=== PATIENT | female | born 1985 | race American Indian/Alaskan Native ===

== ENCOUNTER 2016-05-22 10:10 | Emergency (ER) | payer MEDICAID | END 2016-05-22 13:55 | disposition left against medical advice (07) | LOC: ED 10:10 | DX: L02.92 Furuncle, unspecified (principal); Z53.21 Procedure and treatment not carried out due to patient leaving prior to being seen by health care provider ==

== ENCOUNTER 2016-05-22 19:25 | Emergency (ER) | payer MEDICAID ==
--- NOTE | 2016-05-23 00:24 | Emergency Department Report ---
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 And tender to touch. She says she had swelling to her about 2 weeks denies any fever or chills. Minimal pain at present is 10 out of 10 with touching. She said similar incident in the past in a different area. Denies any nausea or vomiting. Denies any abdominal pain. Home Medications: Previous Rx's Medication Instructions Recorded Last Taken Type Acetaminophen/Codeine [Tylenol #3] 1 tab PO Q6H PRN #12 tab 06/15/13 Unknown Rx Ondansetron [Zofran] 4 mg PO Q6HR PRN #15 tablet 06/15/13 Unknown Rx metFORMIN [Glucophage] 500 mg PO BID #60 tablet 06/15/13 Unknown Rx Amoxicillin [Trimox CAP] 500 mg PO Q8H #30 capsule 11/01/15 Unknown Rx Cetirizine HCl [ZyrTEC] 10 mg PO DAILY #20 capsule 11/01/15 Unknown Rx predniSONE [Deltasone] 40 mg PO QDAY #10 tab 11/01/15 Unknown Rx Amoxicillin/K Clav Tab [Augmentin 1 tab PO Q12HR #14 tab 04/30/16 Unknown Rx 875 mg] Cyclobenzaprine [Flexeril 10 MG 10 mg PO QHS #24 tablet 04/30/16 Unknown Rx TAB] Cephalexin [Keflex] 500 mg PO Q8HR #21 cap 05/23/16 Unknown Rx Ibuprofen [Motrin 800 MG tab] 800 mg PO TID PRN #15 tablet 05/23/16 Unknown Rx Allergies/Adverse Reactions: Allergies Allergy/AdvReac Type Severity Reaction Status Date / Time No Known Allergies Allergy Verified 05/22/16 20:14 ED Review of Systems ROS: 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 Denies any drainage.) Neurological: denies: headache, numbness, paresthesias, confusion, abnormal gait , vertigo ED Past Medical Hx - Past Medical History Previous Medical History?: Yes Hx Hypertension: Yes Hx Diabetes: Yes Additional medical history: OBESITY - Surgical History Past Surgical History?: Yes Hx Cholecystectomy: Yes (2008) Additional Surgical History: , oral - Family History Family history: no significant - Social History Smoking Status: Current Every Day Smoker Substance Use Type: Marijuana - Medications Home Medications: Home Medications Medication Instructions Recorded Confirmed Last Taken Type Acetaminophen/Codeine [Tylenol #3] 1 tab PO Q6H PRN #12 tab 06/15/13 Unknown Rx Ondansetron [Zofran] 4 mg PO Q6HR PRN #15 tablet 06/15/13 Unknown Rx metFORMIN [Glucophage] 500 mg PO BID #60 tablet 06/15/13 Unknown Rx Amoxicillin [Trimox CAP] 500 mg PO Q8H #30 capsule 11/01/15 Unknown Rx Cetirizine HCl [ZyrTEC] 10 mg PO DAILY #20 capsule 11/01/15 Unknown Rx predniSONE [Deltasone] 40 mg PO QDAY #10 tab 11/01/15 Unknown Rx Amoxicillin/K Clav Tab [Augmentin 1 tab PO Q12HR #14 tab 04/30/16 Unknown Rx 875 mg] Cyclobenzaprine [Flexeril 10 MG 10 mg PO QHS #24 tablet 04/30/16 Unknown Rx TAB] Cephalexin [Keflex] 500 mg PO Q8HR #21 cap 05/23/16 Unknown Rx Ibuprofen [Motrin 800 MG tab] 800 mg PO TID PRN #15 tablet 05/23/16 Unknown Rx ED Abscess Boil Physical Exam - Exam General: Vital signs noted. No distress. Alert and acting appropriately. This is a 30-year-old female very obese in no acute distress. Exam: Yes Tenderness (dime size indurated and nonfluctuant area), Yes Surrounding Cellulites/Erythema, Yes Normal Neurologic Exam, Yes Normal Circulation, No Fluctuance, No Lymphangitis, No Crepitation, No Heart Murmur Exam: Head: Normocephalic/atraumatic. Lungs: Clear to auscultate bilaterally, no rhonchi wheezes or rales. Cardiovascular:S1, S2. Tachycardic at 105. Regular rhythm. Skin: Noted dime-sized area to left abdomen. Denies indurated with no fluctuance. Mild edema with tenderness to palpate. No drainage noted. Extremity: No clubbing, cyanosis or edema. +2 pulses. Abdomen: Soft, obese, nontender to palpate in all quadrants and normal bowel sounds in all quadrants. Psych: Normal mood and behavior I & D Note - I & D Note I & D Note: Patient with small indurated area that is nonfluctuant to left lower abdomen that is unable to be drained at present. ED Course Vital Signs 05/22/16 20:15 Temperature 98.2 F Pulse Rate 105 H Respiratory 18 Rate Blood Pressure 134/94 O2 Sat by Pulse 99 Oximetry - Reevaluation(s) Reevaluation #1: 05/23/16 01:12 Patient is stable throughout ED stay. Critical care attestation.: If time is entered above; I have spent that time in minutes in the direct care of this critically ill patient, excluding procedure time. ED Medical Decision Making - Medical Decision Making ED course: I Discussed with patient that she has a small area of cellulitis to abdomen area and she needs to keep affected area clean and dry. I discussed with her that I'll put her on antibiotic to treat cellulitis that she will also need to apply warm compresses 3-4 times a day to facilitate softening drainage. Patient was understanding of diagnosis and discharge instruction. discharge Home with prescription for Keflex and Motrin. ED Disposition Clinical Impression: Cellulitis of left abdominal wall Disposition: DISCHARGED TO HOME OR SELFCARE Is pt being admited?: No Does the pt Need Aspirin: No Condition: Stable Instructions: Cellulitis (ED) Additional Instructions: Please keep affected area clean and dry Apply warm compresses to affected 53-4 times a day to facilitate softening and drainage. Take antibiotic as prescribed. Follow-up with her primary care physician in 4 days. Prescriptions: Cephalexin [Keflex] 500 mg PO Q8HR #21 cap Ibuprofen [Motrin 800 MG tab] 800 mg PO TID PRN #15 tablet PRN Reason: Pain Referrals: CHACE SHABAZZ MD [Primary Care Provider] - 05/27/16 Forms: Accompanied Note, Work/School Release Form(ED)
[2016-05-23 01:44] VITALS: BP 132/88
== END 2016-05-23 02:09 | disposition home or self-care (01) ==
LOC: ED 19:25
DX: L03.311 Cellulitis of abdominal wall (principal); I10 Essential (primary) hypertension; E11.9 Type 2 diabetes mellitus without complications; E66.9 Obesity, unspecified; F12.10 Cannabis abuse, uncomplicated; F17.200 Nicotine dependence, unspecified, uncomplicated
CPT/HCPCS: 99282

== ENCOUNTER 2016-07-02 03:57 | Emergency (ER) | payer MEDICAID ==
[2016-07-02] MEDS ORDERED: REGLAN ONE (04:10)
[2016-07-02] MEDS ORDERED: REGLAN IV ONE (04:23)
[2016-07-02 04:31] VITALS: BP 159/113
[2016-07-02 04:38] LABS: Hematocrit 41.1 % (30.3-42.9); Hemoglobin 13.2 gm/dl (10.1-14.3); Mean Corpuscular HGB Conc 32 % (30-34); Mean Corpuscular Hemoglobin 27 pg (28-32); Mean Corpuscular Volume 84 fl (79-97); Platelet Count 214 K/mm3 (140-440); Red Cell Distribution Width 14.3 % (13.2-15.2)
[2016-07-02 05:02] LABS: Anion Gap 19 mmol/L; Blood Urea Nitrogen 5 mg/dL (7-17); Calcium 8.9 mg/dL (8.4-10.2); Carbon Dioxide 24 mmol/L (22-30); Chloride 96.2 mmol/L (98-107); Glucose 220 mg/dL (65-100); Potassium 3.9 mmol/L (3.6-5.0); Sodium 135 mmol/L (137-145)
--- NOTE | 2016-07-02 05:16 | Emergency Department Report ---
Chief Complaint: Headache Stated Complaint: SEVERE HEADACHES - HPI History of Present Illness: 30-year-old female past medical history obesity presents with complaint of headache anterior, 9 out of 10. Denies any fevers or chills. - ROS Review of Systems: Worsening headache 1 day - Exam Vital Signs: Vital Signs 07/02/16 04:00 Temperature 98.6 F Pulse Rate 102 H Respiratory 20 Rate Blood Pressure 159/113 [Right] O2 Sat by Pulse 99 Oximetry Physical Exam: Awake alert and oriented 3 MSE screening note: Focused history and physical exam performed. Due to findings the following was ordered: Screening Assessment/Plan/Differential Dx: Headache 1- This initial assessment/diagnostic orders/clinical plan/ treatment(s) is/are subject to change based on pt's health status, clinical progression and re- assessment by fellow clinical providers in the ED. Further treatment and workup at subsequent clinical provers discretion. Patient/guardians urged not to elope from ED as their condition may be serious if not clinically assessed and managed. 2-trial of Reglan, will reassess afterward ED Medical Decision Making - Lab Data Result diagrams: 07/02/16 04:10 07/02/16 04:10 ED Disposition for MSE Condition: Stable
[2016-07-02 05:18] LABS: Basophils % (Manual) 0 % (0.0-1.8); Blastocytes % (Manual) 0 %
[2016-07-02 05:19] LABS: Anisocytosis 1+; Crenated RBC Few; Diff Status Complete
--- NOTE | 2016-07-07 19:32 | ED Elopement Review ---
ED Pt Elopement review - Results review Lab results: Laboratory Tests 07/02/16 07/02/16 07/02/16 04:10 04:10 04:10 WBC 16.0 H RBC 4.90 Hgb 13.2 Hct 41.1 MCV 84 MCH 27 L MCHC 32 RDW 14.3 Plt Count 214 Lymph # Building Specialist Add Manual Diff Complete Total Counted 100 Seg Neuts % (Manual) 59.0 Band Neutrophils % 1.0 Lymphocytes % (Manual) 33.0 Reactive Lymphs % (Man) 1.0 Monocytes % (Manual) 4.0 Eosinophils % (Manual) 2.0 Basophils % (Manual) 0 Metamyelocytes % 0 Myelocytes % 0 Promyelocytes % 0 Blast Cells % 0 Nucleated RBC % Not Reportable Seg Neutrophils # Man 9.4 H Band Neutrophils # 0.2 Lymphocytes # (Manual) 5.3 Abs React Lymphs (Man) 0.2 Monocytes # (Manual) 0.6 Eosinophils # (Manual) 0.3 Basophils # (Manual) 0.0 Metamyelocytes # 0.0 Myelocytes # 0.0 Promyelocytes # 0.0 Blast Cells # 0.0 WBC Morphology Not Reportable Hypersegmented Neuts Not Reportable Hyposegmented Neuts Not Reportable Hypogranular Neuts Not Reportable Smudge Cells Not Reportable Toxic Granulation Not Reportable Toxic Vacuolation Not Reportable Dohle Bodies Not Reportable Pelger-Huet Anomaly Not Reportable Bennie Rods Not Reportable Platelet Estimate Appears normal Clumped Platelets Not Reportable Plt Clumps, EDTA Not Reportable Large Platelets Not Reportable Giant Platelets Not Reportable Platelet Satelliting Not Reportable Plt Morphology Comment Not Reportable RBC Morphology Not Reportable Dimorphic RBCs Not Reportable Polychromasia Not Reportable Hypochromasia Not Reportable Poikilocytosis Not Reportable Anisocytosis 1+ Microcytosis Not Reportable Macrocytosis Not Reportable Spherocytes Not Reportable Pappenheimer Bodies Not Reportable Sickle Cells Not Reportable Target Cells Not Reportable Tear Drop Cells Not Reportable Ovalocytes Not Reportable Helmet Cells Not Reportable Valle-Pajonal Bodies Not Reportable [place] Rings Not Reportable Wilmot Cells Not Reportable Bite Cells Not Reportable Crenated Cell Few Elliptocytes Not Reportable Acanthocytes (Spur) Not Reportable Rouleaux Not Reportable Hemoglobin C Crystals Not Reportable Schistocytes Not Reportable Malaria parasites Not Reportable Khoa Bodies Not Reportable Hem Pathologist Commnt No Sodium 135 L Potassium 3.9 Chloride 96.2 L Carbon Dioxide 24 Anion Gap 19 BUN 5 L Creatinine 0.5 L Estimated GFR > 60 BUN/Creatinine Ratio 10.00 Glucose 220 H Calcium 8.9 HCG, Qual Negative - Call Back decision Pt Call Back Decision: No action required
== END 2016-07-02 04:15 ==
LOC: ED 03:57
DX: R51 Headache (principal); Z53.21 Procedure and treatment not carried out due to patient leaving prior to being seen by health care provider
CPT/HCPCS: 36415; 80048; 84703; 85007; 85025; 96374; J2765

== ENCOUNTER 2017-01-05 08:06 | Emergency (ER) | payer OTHER ==
[2017-01-05 08:15] VITALS: BP 135/85
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
[2017-01-05] MEDS ORDERED: MOTRIN PO ONE (11:02)
[2017-01-05] MEDS ORDERED: BOOSTRIX IM ONE (11:57)
--- NOTE | 2017-01-05 12:23 | XRay Report ---
LUMBOSACRAL SPINE, 3 VIEWS: History: Back pain Findings: The vertebral bodies, disk spaces and posterior elements are intact. No compression deformity or malalignment. The SI joints are symmetric and unremarkable. Impression: 1. No evidence for acute injury to the lumbar spine.
--- NOTE | 2017-01-05 12:23 | XRay Report ---
THORACIC SPINE, 2 VIEWS: HISTORY: back pain. Normal bone mineralization. No evidence for compression deformity, malalignment, or bone lesion. The posterior ribs are intact. The paraspinal soft tissues are within normal limits. IMPRESSION: Thoracic spine within normal limits.
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
== END 2017-01-05 12:12 | disposition home or self-care (01) ==
LOC: ED 08:06
DX: S60.417A Abrasion of left little finger, initial encounter (principal); M54.2 Cervicalgia; M54.5 Low back pain; M25.511 Pain in right shoulder; I10 Essential (primary) hypertension; E11.9 Type 2 diabetes mellitus without complications; F17.200 Nicotine dependence, unspecified, uncomplicated; V43.52XA Car driver injured in collision with other type car in traffic accident, initial encounter; Y93.89 Activity, other specified; Y92.89 Other specified places as the place of occurrence of the external cause; Y99.8 Other external cause status
CPT/HCPCS: 72040; 72072; 72100; 90471; 90715